=== PATIENT | male | born 1945 | race Caucasian/White ===

== ENCOUNTER → 2017-04-03 | Day surgery (SDC) | payer MEDICARE ==
[~2017-04-03] VITALS: Ht 180.3 cm; Wt 81.6 kg
[~2017-04-03] MED LIST: NKHM
--- NOTE | ~2017-04-03 | O ---
[place], [place] OPERATIVE NOTE NAME: ELVIS ARELLANO UNIT #: [id number] ROOM: DOCTOR: JAGDISH MEHTA MD BIRTHDATE: [birth year] DOS: The patient is a 71-year-old who has presented with chief complaint of colonic polyp and concerned about a polyp. SOCIAL HISTORY: Smoker and alcohol consumer. FAMILY HISTORY: Colonic carcinoma in sister. PAST SURGICAL HISTORY: Right shoulder repair. PAST MEDICAL HISTORY: Unremarkable. PROCEDURE: Today's procedure part of investigation is colonoscopy plus polypectomy. PREMEDICATION: Versed and Diprivan. SCOPE: Olympus folding colonoscope 10L video. REPORT: After putting the patient in the left lateral position and after application of lubricant to rectal pouch and digital examination, scope was introduced. Thereafter, under direct visualization, I advanced through the length of colon without difficulty. Colon mucosa and vascularity carefully examined. Base of cecum explored, appendiceal orifice identified, and ileocecal valve was defined. Severe diverticulosis particularly in the sigmoid colon was identified. Sessile polypoid lesion in the mid ascending colon with piecemeal polypectomy removed. Air was suctioned out. The patient was gradually extubated, tolerated the procedure well. IMPRESSION: Severe diverticulosis of sigmoid colon. Sessile polypoid lesion with the ascending colon, status post piecemeal polypectomy. PLAN AND DISCUSSION: High fiber fruit diet. ACTIVITY: Ad ervin. FOLLOWUP: Routinely with you in office, p.r.n. visit with us in GI Clinic. Thank you very much indeed for your kind referral. [place], [place] OPERATIVE NOTE NAME: ELVIS ARELLANO [place] UNIT #: [id number] ROOM: DOCTOR: JAGDISH MEHTA MD BIRTHDATE: [birth year] JAGDISH MEHTA MD CM:OPRECORD:OPERATIVE NOTE [id number] JAGDISH MEHTA MD 04/03/17 1541 interface
[2017-04-03 09:39] VITALS: BP 141/76
[2017-04-03 11:10] VITALS: BP 98/59
[2017-04-03 11:25] VITALS: BP 120/76
[2017-04-03 11:40] VITALS: BP 126/76
== END | disposition home or self-care (01) ==
LOC: SDC 04-02 09:30
DX: D12.2 Benign neoplasm of ascending colon (principal); K57.30 Diverticulosis of large intestine without perforation or abscess without bleeding; Z80.0 Family history of malignant neoplasm of digestive organs; Z98.890 Other specified postprocedural states; F17.210 Nicotine dependence, cigarettes, uncomplicated; Z86.010 Personal history of colon polyps

== ENCOUNTER → 2019-02-18 | Day surgery (SDC) | payer MEDICARE ==
[~2019-02-18] VITALS: Ht 183 cm; Wt 84.0 kg
--- NOTE | ~2019-02-18 | O ---
[place], [place] OPERATIVE NOTE NAME: ELVIS ARELLANO UNIT #: [id number] ROOM: DOCTOR: JAGDISH MEHTA MD BIRTHDATE: [birth year] DOS: 02/18/2019 GASTROENDOSCOPIC REPORT HISTORY OF PRESENT ILLNESS: A 73-year-old patient, who presented with chief complaint of history of colonic polyps. PAST MEDICAL HISTORY: Unremarkable. PAST SURGICAL HISTORY: Right shoulder. ALLERGIES: No known medication. SOCIAL HISTORY: He is smoker, alcohol consumer. FAMILY HISTORY: Positive for sister with colonic carcinoma. PROCEDURE: Today's procedure part of investigation is colonoscopy plus piecemeal polypectomy. PREMEDICATION: Propofol. SCOPE: Olympus forward-viewing colonoscope 10L video. REPORT: After putting the patient in left lateral position and application of lubricant to the scope, the scope was introduced. Thereafter, under direct visualization, advanced through the length of colon without difficulty. Severe diverticulosis, sigmoid colon was identified. Retained stool in the colon was identified at sigmoid colon. Sessile polypoid lesion with piecemeal polypectomy was removed. Scope was negotiated to base of cecum. Ileocecal valve was defined. Appendiceal orifice identified, photographed. Scope was gradually withdrawn from ascending, transverse, descending colon. The patient extubated, tolerated the procedure well. IMPRESSION: Severe diverticulosis, some retained stool, sessile polypoid lesion in sigmoid colon, status post piecemeal polypectomy. PLAN: High fiber diet. ACTIVITY: Ad ervin. FOLLOWUP: Routinely with you in office, p.r.n. visit with us in GI Clinic. I thank you very much indeed for your kind referral. [place], [place] OPERATIVE NOTE NAME: ELVIS ARELLANO UNIT #: [id number] ROOM: DOCTOR: JAGDISH MEHTA MD BIRTHDATE: [birth year] JAGDISH MEHTA MD CM:OPRECORD:OPERATIVE NOTE [id number] JAGDISH MEHTA MD 02/19/19 1712 interface
[2019-02-18 07:25] VITALS: BP 132/83
[2019-02-18 09:00] VITALS: BP 121/75
[2019-02-18 09:13] VITALS: BP 121/77
[2019-02-18 09:30] VITALS: BP 119/80
== END | disposition home or self-care (01) ==
LOC: SDC 02-12 01:31
DX: Z12.11 Encounter for screening for malignant neoplasm of colon (principal); K63.5 Polyp of colon; K57.30 Diverticulosis of large intestine without perforation or abscess without bleeding; F17.210 Nicotine dependence, cigarettes, uncomplicated; M19.90 Unspecified osteoarthritis, unspecified site; Z72.89 Other problems related to lifestyle; Z86.010 Personal history of colon polyps; Z98.890 Other specified postprocedural states; Z80.0 Family history of malignant neoplasm of digestive organs

== ENCOUNTER → 2019-09-29 | Outpatient (CLI) | payer MEDICARE ==
[~2019-09-29] MED LIST changes: +OMEPRAZOLE20 M2 PO
== END | disposition home or self-care (01) ==
LOC: LAB 10:52
DX: R19.7 Diarrhea, unspecified (principal)

== ENCOUNTER → 2019-10-14 | Day surgery (SDC) | payer MEDICARE ==
[~2019-10-14] VITALS: Ht 180.3 cm; Wt 81.6 kg
--- NOTE | ~2019-10-14 | O ---
[place], [place] OPERATIVE NOTE NAME: ELVIS ARELLANO UNIT #: [id number] ROOM: DOCTOR: JAGDISH MEHTA MD BIRTHDATE: [birth year] DOS: 10/14/2019 INDICATIONS: This is a 74-year-old patient who presented with chief complaint of epigastric distress, dyspepsia, undergoing investigation. PAST MEDICAL HISTORY: The patient has been on antibiotic in the past, with diverticulosis, diverticulitis, old history of colonic polyp. PROCEDURE: Today's procedure part of his dyspepsia is panendoscopy plus biopsy. PREMEDICATION: Propofol. SCOPE: Olympus forward-viewing gastroscope Q10 video. REPORT: After putting the patient in left lateral position and application of lubricant to the scope, the scope was introduced. Thereafter, under direct visualization, advanced through the length of esophagus without difficulty. A small hiatal hernia 1 cm was noticed. Gastric pouch was entered. Gastritis seen. Antral biopsy was obtained. Erosions seen. Duodenal bulb, second and third part within normal limit. The patient extubated, tolerated the procedure well. IMPRESSION: Antral erosions, gastritis, small hiatal hernia. PLAN AND DISCUSSION: We are going to start him on omeprazole 20 mg 1 every day. Awaiting H. pylori results. JAGDISH MEHTA MD CM:OPRECORD:OPERATIVE NOTE [id number] JAGDISH MEHTA MD 10/14/19 1345 interface
[2019-10-14 13:32] VITALS: BP 105/71
[2019-10-14 13:47] VITALS: BP 121/74
[2019-10-14 14:02] VITALS: BP 146/83
== END | disposition home or self-care (01) ==
LOC: SDC 10-12 13:15
DX: K29.50 Unspecified chronic gastritis without bleeding (principal); K29.70 Gastritis, unspecified, without bleeding; K44.9 Diaphragmatic hernia without obstruction or gangrene; Z86.010 Personal history of colon polyps; Z87.891 Personal history of nicotine dependence

== ENCOUNTER → 2020-01-06 | Outpatient (CLI) | payer MEDICARE ==
[2020-01-06 10:19] LABS: BASO % 0.7 % (0.0-1.0); EOS # 0.2 10*3/uL (0.0-0.4); EOS % 3.8 % (1.0-4.0); HEMATOCRIT 50.3 % (42.0-52.0); HEMOGLOBIN 16.3 g/dl (14.0-18.0); LYMPH # 1.2 10*3/uL (1.3-4.4); MEAN CELL VOLUME 87.9 fl (80.0-94.0); MEAN CORPUSCULAR HGB 28.5 pg (27.0-31.0); MEAN CORPUSCULAR HGB CONC 32.4 g/dl (33.0-37.0); MEAN PLATELET VOLUME 10.9 fl (9.6-12.3); MONO # 0.4 10*3/uL (0.1-1.0); MONO % 9.5 % (3.0-9.0); NEUT # 2.6 10*3/uL (2.3-7.9); NEUT % 59.1 % (47.0-73.0); PLATELET COUNT AUTOMATED 158 10*3/uL (130-400); RED BLOOD COUNT 5.72 10*6/uL (4.50-5.90); RED CELL DISTRI WIDTH 14.4 % (0-14.5); RETICULOCYTE % 1.37 % (0.50-2.50); WHITE BLOOD COUNT 4.4 10*3/uL (4.8-10.8)
[2020-01-06 10:34] LABS: BILIRUBIN NEGATIVE (NEGATIVE); BLOOD NEGATIVE (NEGATIVE); CLARITY SL CLOUDY (CLEAR); COLOR YELLOW (YELLOW); GLUCOSE NEGATIVE (NEGATIVE); KETONE NEGATIVE (NEGATIVE); UROBILINOGEN 0.2 E.U./dl (0.2-1.0)
[2020-01-06 10:35] LABS: BACTERIA TRACE; EPITHELIAL CELLS 0-2; LEUKO ESTERASE NEGATIVE (NEGATIVE); MUCOUS TRACE; NITRITE NEGATIVE (NEGATIVE); RBC 0-2 rbc/hpf (0-2); WBC 0-2 wbc/hpf (0-5)
[2020-01-06 11:02] LABS: FERRITIN 94.8 ng/mL (22.0-322.0); VITAMIN D, 25-HYDROXY 21.4 ng/mL (30-100)
[2020-01-06 11:08] LABS: ALBUMIN 3.7 gm/dl (3.1-4.5); CREATININE 1.41 mg/dL (0.70-1.30); POTASSIUM 4.4 mmol/L (3.5-5.1); TOTAL PROTEIN 6.4 gm/dL (6.4-8.2)
[2020-01-06 11:14] LABS: THYROID STIM HORMONE (HS) 1.82 uIU/ml (0.358-4.75)
== END | disposition home or self-care (01) ==
LOC: LAB 09:54
PROVIDERS: Family Medicine
DX: Z12.5 Encounter for screening for malignant neoplasm of prostate (principal); R79.89 Other specified abnormal findings of blood chemistry; R53.83 Other fatigue; E55.9 Vitamin D deficiency, unspecified; Z79.899 Other long term (current) drug therapy

== ENCOUNTER → 2021-07-18 | Outpatient (CLI) | payer MEDICARE ==
[2021-07-18 11:21] LABS: BASO % 0.5 % (0.0-1.0); BILIRUBIN Negative (Negative); BLOOD Negative (Negative); CLARITY Clear (Clear); COLOR Yellow (Yellow); EOS # 0.1 10*3/uL (0.0-0.4); EOS % 1.9 % (1.0-4.0); GLUCOSE Negative (Negative); HEMATOCRIT 48.4 % (42.0-52.0); KETONE Negative (Negative); LEUKO ESTERASE Negative (Negative); LYMPH # 1.1 10*3/uL (1.3-4.4); LYMPH % 17.8 % (27.0-41.0); MEAN CORPUSCULAR HGB 28.6 pg (27.0-31.0); MEAN CORPUSCULAR HGB CONC 33.3 g/dl (33.0-37.0); MEAN PLATELET VOLUME 10.8 fl (9.6-12.3); MONO # 0.6 10*3/uL (0.1-1.0); MONO % 10.8 % (3.0-9.0); NEUT # 4.1 10*3/uL (2.3-7.9); NEUT % 68.2 % (47.0-73.0); NITRITE Negative (Negative); PLATELET COUNT AUTOMATED 182 10*3/uL (130-400); RED BLOOD COUNT 5.63 10*6/uL (4.50-5.90); RED CELL DISTRI WIDTH 13.5 % (0-14.5); UROBILINOGEN 0.2 E.U./dl (0.0-1.0); WHITE BLOOD COUNT 5.9 10*3/uL (4.8-10.8)
[2021-07-18 11:27] LABS: BACTERIA TRACE; EPITHELIAL CELLS 0-2; RBC 0-2 rbc/hpf (0-2); WBC 0-2 wbc/hpf (0-5)
[2021-07-18 11:51] LABS: BUN 29 mg/dl (7-24); CHLORIDE 110 mmol/L (98-107); CHOLESTEROL 156 mg/dL (<200); CREATININE 1.33 mg/dL (0.70-1.30); IRON 70 ug/dL (65-175); POTASSIUM 4.4 mmol/L (3.5-5.1); SGOT/AST 12 IU/L (3-35); SGPT/ALT 21 U/L (12-78); SODIUM 139 mmol/L (136-145); TRIGLYCERIDES 214 mg/dl (<150)
[2021-07-18 11:59] LABS: ALBUMIN 3.3 gm/dl (3.1-4.5); ALKALINE PHOSPHATASE 77 U/L (45-117); LDL CHOLESTEROL 77 mg/dL (9-159); TOTAL IRON BINDING CAPACITY 278 ug/dl (250-450); TOTAL PROTEIN 7.1 gm/dL (6.4-8.2)
[2021-07-18 12:05] LABS: GAMMA GLUTAMYL TRANSPEPTIDASE < 3 U/L (15-85)
[2021-07-18 12:10] LABS: FERRITIN 95.4 ng/mL (22.0-322.0); VITAMIN D, 25-HYDROXY 37.5 ng/mL (30-100)
== END | disposition home or self-care (01) ==
LOC: LAB 10:52
PROVIDERS: ATTEND Family Medicine
DX: Z12.5 Encounter for screening for malignant neoplasm of prostate (principal); R53.83 Other fatigue; R79.89 Other specified abnormal findings of blood chemistry; E78.5 Hyperlipidemia, unspecified; E55.9 Vitamin D deficiency, unspecified

== ENCOUNTER → 2021-09-20 | Day surgery (SDC) | payer MEDICARE ==
[~2021-09-20] VITALS: Ht 180.3 cm; Wt 81.6 kg
[2021-09-20 10:44] VITALS: BP 130/77
[2021-09-20 11:56] VITALS: BP 131/87
[2021-09-20 12:11] VITALS: BP 125/90
[2021-09-20 12:26] VITALS: BP 128/80
== END | disposition home or self-care (01) ==
LOC: SDC 09-15 08:00
PROVIDERS: ATTEND Ophthalmology
DX: H25.812 Combined forms of age-related cataract, left eye (principal); K21.9 Gastro-esophageal reflux disease without esophagitis; F17.210 Nicotine dependence, cigarettes, uncomplicated; Z79.899 Other long term (current) drug therapy; Z20.822 Contact with and (suspected) exposure to COVID-19